=== PATIENT | male | born 1980 | race Caucasian/White ===

== ENCOUNTER 2023-05-06 11:40 | Emergency (ER) | payer SELFPAY ==
--- NOTE | ~2023-05-06 | XR_ITS ---
XR foot RT min 3V DATE: 05/06/2023 12:04 INDICATION: Right first toe pain following injury last evening TECHNIQUE: 4 views of right foot COMPARISON: None FINDINGS: Mild plantar and posterior calcaneal enthesopathy. There is a comminuted fracture of the shaft, neck and head of the proximal phalanx of the great toe, with intra-articular extension at the interphalangeal joints, with minimal displacement or angulation . No other fracture or dislocation. Mild osteophyte is at the first metatarsophalangeal joint. IMPRESSION: Comminuted fracture of proximal phalanx of great toe with intra-articular extension at th e interphalangeal joint Mild osteoarthritis at the first metatarsophalangeal joint Mild plantar and posterior calcaneal enthesopathy. Reviewed, dictated and finalized at location A. IMPRESSION: Comminuted fracture of proximal phalanx of great toe with intra-art icular extension at the interphalangeal joint Mild osteoarthritis at the first metatarsophalangeal joint Mild plantar and posterior calcaneal enthesopathy.
[2023-05-06 11:53] VITALS: BP 135/98; PULSE 95; RESP 16; TEMP 36.9; O2SAT 100
[2023-05-06 12:03] VITALS: BP 135/98; PULSE 95; RESP 16; TEMP 36.9; O2SAT 100
--- NOTE | 2023-05-06 12:33 | ED.GENADULT ---
HPI - General Adult General Chief complaint: Extremity Injury, Lower Stated complaint: right foot injury Source: patient Mode of arrival: ambulatory Limitations: no limitations History of Present Illness HPI narrative: Patient presents for evaluation of right great toe injury. He indicates it was wet outside and he slipped on a step of a pool. His right great toe got caught in the process. He states pain is constant, 6/10 in severity, worse with weightbearing and walking. He has bruising in the affected digit. Denies paresthesias. He has not taken any medication for pain. He is not diabetic. Related Data Home Medications Medication Instructions Recorded Confirmed Cholest. Med. 05/06/23 Htn Med 05/06/23 Lexapro 05/06/23 Ozempic 05/06/23 Allergies Allergy/AdvReac Type Severity Reaction Status Date / Time No Known Allergies Allergy Verified 05/06/23 11:46 Review of Systems Review of Systems: CONSTITUTIONAL: Denies fever, chills, or sweats. EYES: Denies visual changes, redness, or discharge. ENT: Denies rhinorrhea, congestion, sore throat, or otalgia. CARDIOVASCULAR: Denies chest pain, palpitations, or edema. RESPIRATORY: Denies cough or dyspnea. GASTROINTESTINAL: Denies abdominal pain, nausea, vomiting, or diarrhea. GENITOURINARY: Denies dysuria or hematuria. SKIN: Reports bruising to right great toe MUSCULOSKELETAL: Reports pain in right great toe NEUROLOGIC: Denies headache, numbness, dizziness, or weakness. PSYCHIATRIC: Denies anxiety or depression. [facility] Past Medical History Medical History Hyperlipidemia Hypertension Surgical History Surgical History No pertinent past surgical history Family History Family History Mother Family history non-contributory Social History Social History Smoking packs per day: 0.25 Smoking cigarettes per day: 5.0 Smoking status: Current every day smoker Substance use: current Substance use type: marijuana Living arrangements: with family Gender identity (if verbalized by the patient): Male Sexual Orientation (if Verbalized by the Patient): Straight or Heterosexual Spiritual care concerns: No Exam Narrative: GENERAL: Well-appearing, well-nourished, and in no acute distress. HEAD: Normocephalic, atraumatic. EYES: PERRLA and EOMI. ENT: Nares clear, no rhinorrhea or epistaxis. Mucous membranes moist. Oropharynx without tonsillar hypertrophy exudate or other lesions. Bilateral TMs pearly pat nonbulging NECK: Supple. No adenopathy or masses. No carotid bruits or JVD CHEST: Clear to auscultation. No respiratory distress. No wheezes rales or rhonchi HEART: Regular rate and rhythm. No murmur heard. Normal peripheral pulses. ABDOMEN: Soft, nontender, nondistended, normal active bowel sounds. EXTREMITIES: Normal range of motion. tenderness over proximal phalanx of the right great toe SKIN: right great toe is ecchymotic NEURO: No focal deficits. Alert and oriented x3. PSYCH: Normal mood and affect. Course Course Emergency Course: this is a 42-year-old male who presented with reports of right great toe pain. X ray showed comminuted fracture. He declined crutches as he has them at home. He was provided with post-op shoe and educated to remain nonweightbearing. He declined analgesics. Advised he follow up with podiatry. RICE therapy. Go to the ER for worsening symptoms. Pt in agreement with plan of care. Level of Care: Express Care Visit Vital Signs Vital signs: Vital Signs Temperature 36.9 C 05/06/23 11:53 Pulse Rate 95 05/06/23 11:53 Respiratory Rate 16 05/06/23 11:53 Blood Pressure 135/98 H 05/06/23 11:53 Pulse Oximetry 100 05/06/23 11:53 Oxygen Delivery Magdalena
== END 2023-05-06 12:45 | disposition home or self-care (01) ==
PROVIDERS: Emergency Provider Nurse Practitioner; PCP Emergency Medicine
DX: S92.411A Displaced fracture of proximal phalanx of right great toe, initial encounter for closed fracture (principal); W10.8XXA Fall (on) (from) other stairs and steps, initial encounter; E78.5 Hyperlipidemia, unspecified; I10 Essential (primary) hypertension; F17.210 Nicotine dependence, cigarettes, uncomplicated; F12.90 Cannabis use, unspecified, uncomplicated
CPT/HCPCS: 73630; 99214; G0463